=== PATIENT | male | born 1945 | race Two or more races ===

== ENCOUNTER 2019-07-29 16:35 | Emergency (ER) | payer MEDICARE, OTHER ==
[2019-07-29 17:20] VITALS: BP 128/78
[2019-07-29 17:40] LABS: Influenza A Molecular POSITIVE (Negative)
--- NOTE | 2019-07-29 18:04 | UC ---
FLU HPI - HPI Summary HPI Summary: 73 y/o male presents to the urgent care c/o dry cough cough, high fever and cold chills since Saturday. Pt has not taken any medication to alleviate symptoms. Mild nasal congestion w/ clear nasal discharge. Body aches if 4/10. Pt denies fever, SOB, dizziness, abdominal pain, N/V/D, chest pain, recent travel outside the country. - History of Current Complaint Chief Complaint: UCRespiratory Stated Complaint: FLU LIKE ILLNESS Time Seen by Provider: 07/29/19 18:03 Hx Obtained From: Patient Onset/Duration: Gradual Onset, Lasting Days - 3 days, Still Present Severity Currently: Mild Severity Initially: Moderate Pain Intensity: 4 Pain Scale Used: 0-10 Numeric Associated Signs & Symptoms: Positive: Fever, Myalgia, Cough - dry, Sore Throat , Nasal Congestion - clear, Headache. Negative: Vomiting, Diarrhea Related Hx: Possible Flu/Infectious Exposure - Risk Factors Influenza Risk Factors: Negative - Allergy/Home Medications Allergies/Adverse Reactions: Allergies Allergy/AdvReac Type Severity Reaction Status Date / Time No Known Allergies Allergy Verified 07/29/19 17:15 Home Medications: Home Medications Oseltamivir CAP* [Tamiflu CAP*] 75 mg PO BID #10 cap 07/29/19 [Rx] PMH/Surg Hx/FS Hx/Imm Hx Previously Healthy: Yes - Pt deneis PMHX - Surgical History Surgical History: None - Family History Known Family History: Positive: Diabetes - Social History Occupation: Employed Full-time Lives: With Family Alcohol Use: Occasionally Substance Use Type: None Smoking Status (MU): Never Smoked Tobacco Review of Systems All Other Systems Reviewed And Are Negative: Yes Constitutional: Positive: Fever, Chills, Fatigue, Other - body aches Skin: Positive: Negative Eyes: Positive: Negative ENT: Positive: Nasal Discharge - clear, Sinus Congestion, Sinus Pain/Tenderness , Other - PND Respiratory: Positive: Cough - dry Cardiovascular: Positive: Negative Gastrointestinal: Positive: Negative Genitourinary: Positive: Negative Motor: Positive: Negative Neurovascular: Positive: Negative Musculoskeletal: Positive: Myalgia Neurological/Mental Status: Positive: Headache Psychological: Positive: Negative Is Patient Immunocompromised?: No Physical Exam - Summary Physical Exam Summary: VITAL SIGNS: Reviewed. GENERAL: Patient is a well developed and nourished male who is sitting comfortably in the examining table. Patient is not in any acute respiratory distress. HEAD AND FACE: No signs of trauma. No ecchymosis, hematomas or skull depressions. No sinus tenderness. EYES: PERRLA, EOMI x 2, No injected conjunctiva, no nystagmus. No photophobia. EARS: Hearing grossly intact. Ear canals and tympanic membranes are within normal limits. MOUTH: Positive pharynx with mild erythema, no exudates, No B/L tonsillar enlargement , no exudate. Uvula in midline. edematous nasal mucosa w/ clear nasal discharge, clear PND NECK: Supple, trachea is midline, Positive anterior cervical lymphadenopathy, no JVD, no carotid bruit, no c-spine tenderness, neck with full ROM. No meningeal signs, no Kernig's or brudzinskis signs. CHEST: Symmetric, no tenderness at palpation LUNGS: Clear to auscultation bilaterally. No wheezing or crackles. CVS: Regular rate and rhythm, S1 and S2 present, no murmurs or gallops appreciated. ABDOMEN: Soft, non-tender. No signs of distention. No rebound no guarding, and no masses palpated. Bowel sounds are normal. EXTREMITIES: FROM in all major joints, no edema, no cyanosis or clubbing. NEURO: Alert and oriented x 3. No acute neurological deficits. Pt follows commands. SKIN: Dry and warm Triage Information Reviewed: Yes Vital Signs: Initial Vital Signs Temp 97.9 F 07/29/19 17:16 Pulse 76 07/29/19 17:16 Resp 16 07/29/19 17:16 BP 128/78 07/29/19 17:16 Pulse Ox 99 07/29/19 17:16 Flu Course/Dx - Course Course Of Treatment: 73 y/o male presents to the urgent care c/o dry cough cough, high fever and cold chills since Saturday. Pt has not taken any medication to alleviate symptoms. Mild nasal congestion w/ clear nasal discharge. Body aches if 4/10. Pt denies fever, SOB, dizziness, abdominal pain, N/V/D, chest pain, recent travel outside the country. Hx obtained. Pt with URI on examination. Influenza A &B ordered: result: Influenza A positive.Pt Rx Tamiflu to alleviate symptoms. Advised take Tylenol PO and hand washing and wearing a mask to avoid spreading. Pt advised to rest, increase fluid intake, eat well and avoid strenuous exercise.If symptoms do not improve or worsen advised to return to the urgent care or f/u with her PCP for further evaluation and treatment. Pt understood and agreed w/ plan of care. - Differential Dx/Diagnosis Differential Diagnosis/HQI/PQRI: Bronchitis, Influenza, Pneumonia, Upper Respiratory Infection Provider Diagnosis: Influenza A Discharge ED - Sign-Out/Discharge Documenting (check all that apply): Patient Departure - D/C home All imaging exams completed and their final reports reviewed: No Studies - Discharge Plan Condition: Stable Disposition: HOME Prescriptions: Oseltamivir CAP* [Tamiflu CAP*] 75 mg PO BID #10 cap Patient Education Materials: Influenza (ED) Forms: *Work Release Referrals: Mack Marroquin MD [Primary Care Provider] - 3 Days Additional Instructions: 1- Please take the full course of the antiviral to avoid resistance. Encourage hand washing and wear a mask to avoid spreading. 2-Please continue taking Tylenol PO q6-8hrs prn as instructed after meals to alleviate fever, and sore throat. Increase fluid intake, eat well, rest and avoid strenuous exercise 3-If symptoms do not improve or worsen please return to the urgent care or f/u with your PCP in 2 days for further evaluation and treatment. - Billing Disposition and Condition Condition: STABLE Disposition: Home - Attestation Statements Provider Attestation: This patient was not seen by me. I was available for consult. Chart reviewed. DANIKA
== END 2019-07-29 18:22 | disposition home or self-care (01) ==
LOC: UCCORT 16:35
DX: J10.1 Influenza due to other identified influenza virus with other respiratory manifestations (principal)
CPT/HCPCS: 99202; G0463